=== PATIENT | male | born 1950 | race Caucasian/White ===

== ENCOUNTER 2025-05-06 19:16 | Emergency (ER) | payer SELFPAY ==
[~2025-05-06] VITALS: Ht 172.7 cm; Wt 73.0 kg
[2025-05-06 19:19] VITALS: O2SAT 99
[2025-05-06] MEDS ORDERED: FENTANYL 2500MCG/250ML PMX 250 ML IV SCH (19:45)
[2025-05-06] MEDS ORDERED: LEVETIRACETAM 1,500MG in NACL 100ML PREMIX IV SCH (19:45)
[2025-05-06] MEDS: MANNITOL 12.5G (25%) VIAL 50ML IV ONE (19:59)
[2025-05-06] MEDS: PROPOFOL 10MG/ML 100ML 100 ML IV SCH (20:08)
[2025-05-06] MEDS: NICARDIPINE 40MG/200ML PREMIX 200 ML IV PRN (20:09)
[2025-05-06] MEDS: LEVETIRACETAM 1500MG PREMIX 100 ML IV SCH (20:09)
[2025-05-06] MEDS: FENTANYL 2500MCG/250ML PMX 250 ML IV PRN (20:10)
[2025-05-06 20:19] LABS: HEMATOCRIT. 38.7 % (42.0-52.0); HEMOGLOBIN. 12.8 g/dL (14.0-18.0); MEAN PLATELET VOLUME 9.6 fl (7.4-10.4); PLATELET 168 x1000/uL (130-400); RED BLOOD CELL COUNT 4.34 mill/uL (4.7-6.1); RED CELL DISTRIBUTION WIDTH 13.4 % (11.6-14.6)
[2025-05-06] MEDS: SUCCINYLCHOLINE CHLORIDE 200MG/10ML IV ONE (20:20)
[2025-05-06] MEDS: ETOMIDATE 2MG/ML 10ML VIAL IV ONE (20:20)
[2025-05-06 20:30] LABS: INR 1.1
[2025-05-06 20:37] LABS: CREATININE 0.8 mg/dL (0.6-1.3); ETHANOL BLOOD < 10 mg/dL (<10); UREA NITROGEN BLOOD 8 mg/dL (9-23)
[2025-05-06 20:38] LABS: PROTEIN TOTAL 6.6 g/dL (6.0-8.3)
[2025-05-06 20:39] LABS: ASPARTATE AMINOTRANSFERASE 28 IU/L (<34); BILIRUBIN DIRECT 0.1 mg/dL (<=3.0); BILIRUBIN TOTAL 0.5 mg/dL (0.1-1.0)
[2025-05-06 20:45] VITALS: BP 112/58; PULSE 76; RESP 20; TEMP 36.7; O2SAT 100
[2025-05-06 20:49] LABS: EOSINOPHILS % MANUAL 1.0 % (0.0-5.0); LYMPHOCYTES % MANUAL 8.0 % (20.0-50.0); MONOCYTES % MANUAL 2.0 % (2.0-8.0); NEUTROPHILS % MANUAL 89.0 % (45.0-75.0); PLATELET ESTIMATE NORMAL
[2025-05-06 20:56] LABS: CLARITY URINE CLEAR (CLEAR); COLOR URINE YELLOW (YELLOW); GLUCOSE URINE 1+ (NEGATIVE); KETONES URINE 1+ (NEGATIVE); LEUKOCYTE ESTERASE URINE NEGATIVE (NEGATIVE); NITRITE URINE NEGATIVE (NEGATIVE); OCCULT BLOOD URINE TRACE (NEGATIVE); PH URINE 7.5 (4.5-8.0); PROTEIN URINE NEGATIVE (NEGATIVE); SPECIFIC GRAVITY URINE 1.025 (1.005-1.030); UROBILINOGEN URINE 0.2 E.U./dL (0.2-1.0)
[2025-05-06 20:59] LABS: *AMPHETAMINES SCREEN URINE NEGATIVE (NEGATIVE); *BARBITURATES SCREEN URINE NEGATIVE (NEGATIVE); *BENZODIAZEPINES SCREEN URINE NEGATIVE (NEGATIVE); *COCAINE SCREEN URINE NEGATIVE (NEGATIVE); CANNABINOID URINE SCREEN NEGATIVE (NEGATIVE); ECSTASY MDMA SCREEN URINE NEGATIVE (NEGATIVE); METHADONE URINE SCREEN NEGATIVE (NEGATIVE); OPIATES URINE SCREEN NEGATIVE (NEGATIVE); PHENCYCLIDINE URINE SCREEN NEGATIVE (NEGATIVE)
[2025-05-06 21:11] LABS: TROPONIN I HIGH SENSITIVITY 132 ng/L (3.0-53)
[2025-05-06 22:25] LABS: BACTERIA URINE TRACE; RBC URINE 0-2 /hpf (0-2); SQUAMOUS EPITHELIAL CELL URINE FEW /lpf (RARE/1+); WBC URINE NONE SEEN /hpf (0-2)
[2025-05-06] MEDS ORDERED: IOHEXOL-350 100 ML BOTTLE ONE (23:43)
== END 2025-05-06 21:06 | disposition short-term general hospital (02) ==
LOC: ER 19:16 → CMPBEDREQ 22:19
DX: I60.2 Nontraumatic subarachnoid hemorrhage from anterior communicating artery (principal); J96.01 Acute respiratory failure with hypoxia; I10 Essential (primary) hypertension; D64.9 Anemia, unspecified; Z79.899 Other long term (current) drug therapy
CPT/HCPCS: 80076; 80305; 80048; 81003; 80320; 83690; 83735; 85025; 85610; 85730; 84484; 36415; 71045; 70496; 70498; 70450; 93005; 31500; 96368; 96365; 99291; 99292; Q9967; Z7610; J1953; J2151; J2704; J3010; G0480